=== PATIENT | female | born 1965 | race American Indian/Alaskan Native ===

== ENCOUNTER 2016-07-21 07:07 | Emergency (ER) | payer OTHER ==
[2016-07-21 07:39] VITALS: BP 135/91
[2016-07-21] MEDS ORDERED: PERCOCET 5/325 PO ONE (08:06)
--- NOTE | 2016-07-21 08:06 | Emergency Department Report ---
HPI - General Chief Complaint: Sore Throat Time Seen by Provider: 07/21/16 07:49 - HPI HPI: This is a 51 year-old female presents to the emergency department with a 2 day history of a generalized sharp headache, photophobia, bilateral ear pain, head congestion and sore throat. She has some pain with swallowing but has no difficulty doing so. She took a tramadol, which she has for recent foot surgery, about 1 AM this morning without much relief. She denies any slurred speech, chest pain, shortness of breath, fever, nausea or vomiting. She has a primary care physician, Dr. German Bryant, but has not seen him regarding her symptoms. No recent travel or sick contacts at home. ED Past Medical Hx - Past Medical History Hx Congestive Heart Failure: No Hx Diabetes: No Hx GERD: Yes Hx Kidney Stones: Yes Hx Asthma: Yes Hx COPD: No Hx HIV: No - Surgical History Hx Appendectomy: Yes Additional Surgical History: hysterectomy. right knee surgery. tonsillectomy. LEFT FOOT SURGERY - Social History Smoking Status: Never Smoker Substance Use Type: Prescribed - Medications Home Medications: Home Medications Medication Instructions Recorded Confirmed Last Taken Type ALBUTEROL Inhaler [ProAir HFA 2 puff IH QID PRN #1 inha 01/18/14 Unknown Rx Inhaler] ALBUTEROL NEB's [Proventil 0.083% 2.5 mg IH TID PRN #1 neb 01/18/14 Unknown Rx NEBS] Benzonatate [Tessalon Perle] 100 mg PO TID #20 capsule 01/18/14 Unknown Rx Loratadine [Claritin] 10 mg PO DAILY #20 tablet 01/18/14 Unknown Rx Mometasone Furoate [Nasonex] 2 spray NS QDAY #1 bottle 01/18/14 Unknown Rx predniSONE [Deltasone] 20 mg PO BID #8 tablet 02/21/14 Unknown Rx traMADol [Ultram 50 MG tab] 50 mg PO Q6HR PRN #25 tablet 02/21/14 Unknown Rx traMADol [Ultram 50 MG tab] 50 mg PO Q6HR PRN #20 tablet 01/16/15 Unknown Rx Azithromycin [Zithromax Z-KEO] 250 mg PO DAILY #6 tab 03/07/15 Unknown Rx Guaifenesin/Pseudoephedrne HCl 1 each PO Q12HR #14 tab.er.12h 03/07/15 Unknown Rx [Mucinex D ER 600-60 mg Tablet] oxyCODONE /ACETAMINOPHEN [Percocet 1 tab PO Q6HR PRN #5 tablet 07/21/16 Unknown Rx 5/325] ED Review of Systems ROS: Stated complaint: SORE THROAT/EARACHE/HEADACHE/CONGESTION Other details as noted in HPI Comment: All other systems reviewed and negative Constitutional: denies: chills, fever Eyes: denies: eye discharge, vision change ENT: ear pain, throat pain, congestion Respiratory: denies: shortness of breath, wheezing Cardiovascular: denies: chest pain, palpitations Gastrointestinal: denies: abdominal pain, nausea, diarrhea Genitourinary: denies: urgency, dysuria, discharge Musculoskeletal: denies: back pain, joint swelling, arthralgia Skin: denies: rash, lesions Neurological: headache. denies: weakness, numbness, paresthesias Physical Exam - Physical Exam Vital Signs: Vital Signs 07/21/16 07:33 Temperature 97.8 F Pulse Rate 82 Respiratory 18 Rate Blood Pressure 135/91 O2 Sat by Pulse 98 Oximetry Physical Exam: GENERAL: The patient is well-developed well-nourished. HEENT: Normocephalic. Atraumatic. Extraocular motions are intact. Patient has moist mucous membranes. Pupils equal reactive to light bilaterally. No nystagmus. Bilateral normal-appearing external ear canals and tympanic membranes. Oral pharynx is clear without tonsillar hypertrophy, erythema or exudates. NECK: Supple. No meningitic signs are noted. Full range of motion. CHEST/LUNGS: Clear to auscultation. There is no respiratory distress noted. HEART/CARDIOVASCULAR: Regular. There is no tachycardia. There is no gallop rub or murmur. ABDOMEN: Abdomen is soft, nontender. Patient has normal bowel sounds. There is no abdominal distention. SKIN: Skin is warm and dry. NEURO: The patient is awake, alert, and oriented. The patient is cooperative. The patient has no focal neurologic deficits. The patient has normal speech and gait. Cranial nerves II through XII grossly intact. MUSCULOSKELETAL: There is no tenderness or deformity. There is no limitation range of motion. There is no evidence of acute injury. Muscle strength 5 out of 5 upper and lower extremities bilaterally. ED Course Vital Signs 07/21/16 07:33 Temperature 97.8 F Pulse Rate 82 Respiratory 18 Rate Blood Pressure 135/91 O2 Sat by Pulse 98 Oximetry ED Medical Decision Making - Radiology Data Radiology results: report reviewed CT of the head does not show any acute process including no hemorrhage, mass, shift, diffuse edema or skull fracture. - Medical Decision Making This is a 51-year-old female who presents the emergency department with a 2 day history of a generalized headache, ear congestion, sore throat. She does not have any focal, motor or sensory deficits in her cranial nerves are intact. She does have some mild photophobia. Patient seen ambulatory in the emergency department and appears stable while doing so. Physical exam there is no sign of any otitis media, otitis externa or any pharyngitis. However a rapid strep test was done that was negative. Patient was given a pain pill upon reevaluation her headache is improved down to 5 out of 10 but since the patient does not have a history of headaches a CT of the head without contrast was done. There was no sign of any bleed, shift, mass, ischemic changes or any acute process. Patient was once again reevaluated and is feeling even more improved and asking for discharge home. She will be given a very small amount of pain medication to assist with her headache but she has been encouraged to return to the emergency department if the headache does not resolve, it worsens , there is development of any neurological deficits, or any acute distress. Otherwise she'll be encouraged to follow-up with her primary care doctor. - Differential Diagnosis tension headache, migraine headache, brain bleed, otitis media, strep phary Critical Care Time: No Critical care attestation.: If time is entered above; I have spent that time in minutes in the direct care of this critically ill patient, excluding procedure time. ED Disposition Clinical Impression: Sinus congestion Pharyngitis Qualifiers: Pharyngitis/tonsillitis etiology: unspecified etiology Qualified Code(s): J02.9 - Acute pharyngitis, unspecified Headache Qualifiers: Headache type: unspecified Headache chronicity pattern: unspecified pattern Intractability: not intractable Qualified Code(s): R51 - Headache Disposition: DISCHARGED TO HOME OR SELFCARE Is pt being admited?: No Condition: Stable Instructions: Acute Headache (ED), Earache (ED), Pharyngitis (ED) Additional Instructions: Please follow-up with Dr. Bryant in a few days. Return to the emergency department with any worsening of your symptoms, development of any neurological or sits, or any acute distress. You can use saline nasal spray for your sinus and ear congestion and this may also help with your sore throat. You can use Tylenol every 4 hours and Motrin every 6 hours, using weight-based dosing, as needed for discomfort. I have given you a small amount of pain medication to help finish off your headache but this medication also has some Tylenol and it so please make sure not to take too much Tylenol. You've been prescribed a medication that is sedating. Therefore this medication cannot be mixed with alcohol, or taken prior to driving, working, or being responsible for children. Prescriptions: oxyCODONE /ACETAMINOPHEN [Percocet 5/325] 1 tab PO Q6HR PRN #5 tablet PRN Reason: Pain Referrals: GERMAN BRYANT MD [Staff Physician] - 3-5 Days Time of Disposition: 10:07
--- NOTE | 2016-07-21 09:56 | Cat Scan Report ---
CT HEAD WITHOUT CONTRAST: HISTORY: Headache. Serial contiguous axial images were obtained through the cranium. Intravenous contrast material was not administered. The ventricles are normal in size and appearance. There is no mass effect or midline shift. No areas of abnormally increased or decreased attenuation are seen. No mass lesion is seen. The mastoid air cells and visualized portions of the sinuses are normal. IMPRESSION: Cranial CT scan within normal limits.
== END 2016-07-21 10:30 | disposition home or self-care (01) ==
LOC: ED 07:07
DX: J34.89 Other specified disorders of nose and nasal sinuses (principal); J02.9 Acute pharyngitis, unspecified; R51 Headache; J45.909 Unspecified asthma, uncomplicated; K21.9 Gastro-esophageal reflux disease without esophagitis; Z88.0 Allergy status to penicillin; Z88.6 Allergy status to analgesic agent; Z88.2 Allergy status to sulfonamides
CPT/HCPCS: 70450; 87116; 87430

== ENCOUNTER 2016-08-10 14:59 | Emergency (ER) | payer OTHER ==
[2016-08-10] MEDS ORDERED: TORADOL IM ONE (18:38)
[2016-08-10] MEDS ORDERED: FLEXERIL PO ONE (18:38)
[2016-08-10 19:02] VITALS: BP 158/98
--- NOTE | 2016-08-10 23:15 | Emergency Department Report ---
Entered by FRANNIE WASSERMAN, acting as scribe for BLAS QUEEN PA. ED Back Pain/Injury HPI - General Chief Complaint: Back Pain/Injury Stated Complaint: FALL/SEVERE BACK PAIN Source: patient Limitations: No Limitations - History of Present Illness Initial Comments: 51 y/o female with a PMHx of asthma, kidney stones, and GERD presents to the ED c/o left upper back pain that began last night. Patient states she tripped backwards, and subsequently fell on the wall. Rates back pain an 6/10 an severity, which she describes as throbbing, aching, and pressure in quality. Aggravated with deep breaths and bending, and alleviated with immobilization. Associated headache, but she denies head trauma/injury, numbness, tingling, chest pain, and SOB. Allergic to aspirin, codeine, penicillins, and sulfa. MD Complaint: back pain (left upper back) -: Last night Similar Symptoms Previously: No Place: home Radiation: none Severity: severe Severity scale (0 -10): 8 Quality: aching, other (throbbing and pressure) Consistency: constant Improves With: immobilization Worsens With: deep breaths/cough, other (bending) Context: fall (fell against the wall), other Associated Symptoms: denies other symptoms. denies: weakness, chest pain, numbness, difficulty walking, cough, incontinence, fever/chills, headaches, abdominal pain, nausea/vomiting, rash, shortness of breath - Related Data Previous Rx's Medication Instructions Recorded Last Taken Type ALBUTEROL Inhaler [ProAir HFA 2 puff IH QID PRN #1 inha 01/18/14 Unknown Rx Inhaler] ALBUTEROL NEB's [Proventil 0.083% 2.5 mg IH TID PRN #1 neb 01/18/14 Unknown Rx NEBS] Benzonatate [Tessalon Perle] 100 mg PO TID #20 capsule 01/18/14 Unknown Rx Loratadine [Claritin] 10 mg PO DAILY #20 tablet 01/18/14 Unknown Rx Mometasone Furoate [Nasonex] 2 spray NS QDAY #1 bottle 01/18/14 Unknown Rx predniSONE [Deltasone] 20 mg PO BID #8 tablet 02/21/14 Unknown Rx traMADol [Ultram 50 MG tab] 50 mg PO Q6HR PRN #25 tablet 02/21/14 Unknown Rx traMADol [Ultram 50 MG tab] 50 mg PO Q6HR PRN #20 tablet 01/16/15 Unknown Rx Azithromycin [Zithromax Z-KEO] 250 mg PO DAILY #6 tab 03/07/15 Unknown Rx Guaifenesin/Pseudoephedrne HCl 1 each PO Q12HR #14 tab.er.12h 03/07/15 Unknown Rx [Mucinex D ER 600-60 mg Tablet] oxyCODONE /ACETAMINOPHEN [Percocet 1 tab PO Q6HR PRN #5 tablet 07/21/16 Unknown Rx 5/325] Cyclobenzaprine [Flexeril] 10 mg PO QHS PRN #20 tablet 08/10/16 Unknown Rx Ibuprofen [Motrin] 800 mg PO Q8HR PRN #40 tablet 08/10/16 Unknown Rx Allergies Allergy/AdvReac Type Severity Reaction Status Date / Time aspirin Allergy Hives Verified 07/21/16 07:30 codeine Allergy Shortness Verified 07/21/16 07:30 of Breath Penicillins Allergy Hives Verified 07/21/16 07:30 Sulfa (Sulfonamide Allergy Hives Verified 07/21/16 07:30 Antibiotics) ED Review of Systems Comment: All other systems reviewed and negative Constitutional: denies: chills, fever Respiratory: denies: cough, shortness of breath, wheezing Cardiovascular: denies: chest pain, palpitations Endocrine: no symptoms reported Gastrointestinal: denies: abdominal pain, nausea, vomiting, diarrhea Genitourinary: denies: other (incontinence) Musculoskeletal: back pain (left upper back pain) Skin: denies: rash, lesions Neurological: denies: headache, weakness, paresthesias ED Past Medical Hx - Past Medical History Hx Congestive Heart Failure: No Hx Diabetes: No Hx GERD: Yes Hx Kidney Stones: Yes Hx Asthma: Yes Hx COPD: No Hx HIV: No - Surgical History Hx Appendectomy: Yes Additional Surgical History: hysterectomy. right knee surgery. tonsillectomy. LEFT FOOT SURGERY - Social History Smoking Status: Never Smoker Substance Use Type: Alcohol - Medications Home Medications: Home Medications Medication Instructions Recorded Confirmed Last Taken Type ALBUTEROL Inhaler [ProAir HFA 2 puff IH QID PRN #1 inha 01/18/14 Unknown Rx Inhaler] ALBUTEROL NEB's [Proventil 0.083% 2.5 mg IH TID PRN #1 neb 01/18/14 Unknown Rx NEBS] Benzonatate [Tessalon Perle] 100 mg PO TID #20 capsule 01/18/14 Unknown Rx Loratadine [Claritin] 10 mg PO DAILY #20 tablet 01/18/14 Unknown Rx Mometasone Furoate [Nasonex] 2 spray NS QDAY #1 bottle 01/18/14 Unknown Rx predniSONE [Deltasone] 20 mg PO BID #8 tablet 02/21/14 Unknown Rx traMADol [Ultram 50 MG tab] 50 mg PO Q6HR PRN #25 tablet 02/21/14 Unknown Rx traMADol [Ultram 50 MG tab] 50 mg PO Q6HR PRN #20 tablet 01/16/15 Unknown Rx Azithromycin [Zithromax Z-KEO] 250 mg PO DAILY #6 tab 03/07/15 Unknown Rx Guaifenesin/Pseudoephedrne HCl 1 each PO Q12HR #14 tab.er.12h 03/07/15 Unknown Rx [Mucinex D ER 600-60 mg Tablet] oxyCODONE /ACETAMINOPHEN [Percocet 1 tab PO Q6HR PRN #5 tablet 07/21/16 Unknown Rx 5/325] Cyclobenzaprine [Flexeril] 10 mg PO QHS PRN #20 tablet 08/10/16 Unknown Rx Ibuprofen [Motrin] 800 mg PO Q8HR PRN #40 tablet 08/10/16 Unknown Rx ED Physical Exam - General Limitations: No Limitations General appearance: alert, in no apparent distress - Head Head exam: Present: atraumatic, normocephalic - Eye Eye exam: Present: normal appearance, PERRL, EOMI Pupils: Present: normal accommodation - ENT ENT exam: Present: normal exam, mucous membranes moist - Neck Neck exam: Present: normal inspection, full ROM. Absent: tenderness, lymphadenopathy - Respiratory Respiratory exam: Present: normal lung sounds bilaterally. Absent: respiratory distress, wheezes, rales, rhonchi, stridor - Cardiovascular Cardiovascular Exam: Present: regular rate, normal rhythm, normal heart sounds. Absent: systolic murmur, diastolic murmur, rubs, gallop - GI/Abdominal GI/Abdominal exam: Present: soft, normal bowel sounds. Absent: distended - Extremities Exam Extremities exam: Present: normal inspection, full ROM - Back Exam Back exam: Present: full ROM (limited ROM due to back pain), tenderness (Left latissimus dorsi muscle tenderness). Absent: CVA tenderness (R), paraspinal tenderness, vertebral tenderness - Neurological Exam Neurological exam: Present: alert, oriented X3, normal gait - Psychiatric Psychiatric exam: Present: normal affect, normal mood - Skin Skin exam: Present: warm, dry, intact. Absent: rash ED Course Vital Signs 08/10/16 08/10/16 15:04 19:01 Temperature 98.2 F Pulse Rate 92 H 74 Respiratory 18 16 Rate Blood Pressure 134/86 Blood Pressure 158/98 [Left] O2 Sat by Pulse 100 100 Oximetry ED Medical Decision Making - Medical Decision Making 51-year-old female presents with left upper back myalgia ED course: Patient was given a Toradol and Flexeril for pain. Patient is not ill-appearing. Discussed heat therapy 3 times a day. Discussed home medications Flexeril and naproxen for pain. Discussed the follow-up for an PCP as referred. Discuss her symptoms return or worsen to return to the ED Patient states understanding and will follow instructions. Vital signs stable. Patient is in no acute distress. ED Disposition Clinical Impression: Myalgia, Trapezius muscle strain Disposition: DC- TO HOME OR SELFCARE Is pt being admited?: No Does the pt Need Aspirin: No Condition: Stable Instructions: Muscle Strain (ED), Trigger Point Pain (ED), Musculoskeletal Pain (ED), Heat Pack Application (ED) Prescriptions: Cyclobenzaprine [Flexeril] 10 mg PO QHS PRN #20 tablet PRN Reason: Muscle Spasm Ibuprofen [Motrin] 800 mg PO Q8HR PRN #40 tablet PRN Reason: Pain Referrals: PRIMARY CARE,MD [Primary Care Provider] - 3-5 Days [facility] [Outside] - 3-5 Days [facility] [Outside] - 3-5 Days Forms: Work/School Release Form(ED) Time of Disposition: 18:45 This documentation as recorded by the LISY mukherjee JASMINE,accurately reflects the service I personally performed and the decisions made by ,BLAS QUEEN PA.
== END 2016-08-10 19:03 | disposition home or self-care (01) ==
LOC: ED 14:59
DX: S46.912A Strain of unspecified muscle, fascia and tendon at shoulder and upper arm level, left arm, initial encounter (principal); K21.9 Gastro-esophageal reflux disease without esophagitis; J45.909 Unspecified asthma, uncomplicated; Z88.0 Allergy status to penicillin; Z88.1 Allergy status to other antibiotic agents; Z88.6 Allergy status to analgesic agent; W01.198A Fall on same level from slipping, tripping and stumbling with subsequent striking against other object, initial encounter; Y93.9 Activity, unspecified; Y99.9 Unspecified external cause status; Y92.009 Unspecified place in unspecified non-institutional (private) residence as the place of occurrence of the external cause
CPT/HCPCS: 96372; 99282; J1885

== ENCOUNTER 2017-07-15 18:09 | Emergency (ER) | payer SELFPAY ==
[2017-07-15 19:23] LABS: Basophils % (Auto) 0.4 % (0.0-1.8); Eosinophils # (Auto) 0.1 K/mm3 (0.0-0.4); Hematocrit 41.1 % (30.3-42.9); Hemoglobin 13.2 gm/dl (10.1-14.3); Lymphocytes # (Auto) 2.3 K/mm3 (1.2-5.4); Lymphocytes % (Auto) 25.2 % (13.4-35.0); Mean Corpuscular HGB Conc 32 % (30-34); Mean Corpuscular Hemoglobin 26 pg (28-32); Mean Corpuscular Volume 82 fl (79-97); Monocytes # (Auto) 0.7 K/mm3 (0.0-0.8); Monocytes % (Auto) 7.6 % (0.0-7.3); Platelet Count 286 K/mm3 (140-440); Red Blood Count 5.04 M/mm3 (3.65-5.03); Red Cell Distribution Width 12.4 % (13.2-15.2)
[2017-07-15 19:35] LABS: BUN/Creatinine Ratio 13; Blood Urea Nitrogen 9 mg/dL (7-17); Calcium 9.2 mg/dL (8.4-10.2); Hemolysis Index 7
--- NOTE | 2017-07-15 20:41 | XRay Report ---
FINAL REPORT EXAM: XR CHEST ROUTINE 2V HISTORY: Shortness of breath TECHNIQUE: PA and lateral views of the chest PRIORS: None. FINDINGS: Lines, tubes, and devices: N/A Lungs and pleura: Trachea is normal in position. Lungs are clear of infiltrate, pleural effusion, vascular congestion, or pneumothorax. Cardiomediastinal silhouette: Cardiac and mediastinal silhouettes are unremarkable. Other: Bony structures are intact. IMPRESSION: No acute cardiopulmonary process seen.
--- NOTE | 2017-07-16 01:18 | Emergency Department Report ---
ED General Adult HPI - General Chief complaint: Chest Pain Stated complaint: CHEST PAIN Time Seen by Provider: 07/16/17 01:07 Source: patient Mode of arrival: Ambulatory Limitations: No Limitations - History of Present Illness Initial comments: History of asthma cough and cold symptoms for several days no calf pain or swelling hurts in her chest when she coughs here for evaluation of nonproductive cough with some facial pains no headache no stiff neck, visual complaints of fever or exertional chest pain no history of coronary artery disease -: Gradual, days(s) Location: face, chest Severity scale (0 -10): 7 Quality: burning Consistency: intermittent Improves with: none Worsens with: none Associated Symptoms: denies other symptoms, chest pain, cough, fever/chills, headaches, malaise. denies: confusion, diaphoresis, loss of appetite, nausea/ vomiting, rash, seizure, shortness of breath, syncope, weakness - Related Data Previous Rx's Medication Instructions Recorded Last Taken Type ALBUTEROL NEB's [Proventil 0.083% 2.5 mg IH TID PRN #1 neb 01/18/14 Unknown Rx NEBS] Benzonatate [Tessalon Perle] 100 mg PO TID #20 capsule 01/18/14 Unknown Rx Loratadine [Claritin] 10 mg PO DAILY #20 tablet 01/18/14 Unknown Rx Mometasone Furoate [Nasonex] 2 spray NS QDAY #1 bottle 01/18/14 Unknown Rx traMADol [Ultram 50 MG tab] 50 mg PO Q6HR PRN #25 tablet 02/21/14 Unknown Rx traMADol [Ultram 50 MG tab] 50 mg PO Q6HR PRN #20 tablet 01/16/15 Unknown Rx Guaifenesin/Pseudoephedrne HCl 1 each PO Q12HR #14 tab.er.12h 03/07/15 Unknown Rx [Mucinex D ER 600-60 mg Tablet] oxyCODONE /ACETAMINOPHEN [Percocet 1 tab PO Q6HR PRN #5 tablet 07/21/16 Unknown Rx 5/325] Cyclobenzaprine [Flexeril] 10 mg PO QHS PRN #20 tablet 08/10/16 Unknown Rx Ibuprofen [Motrin] 800 mg PO Q8HR PRN #40 tablet 08/10/16 Unknown Rx ALBUTEROL Inhaler [ProAir HFA 2 puff IH QID PRN #1 inha 07/16/17 Unknown Rx Inhaler] Azithromycin [Zithromax Z-KEO] 250 mg PO DAILY #6 tab 07/16/17 Unknown Rx predniSONE [Deltasone] 20 mg PO BID #8 tablet 07/16/17 Unknown Rx Allergies Allergy/AdvReac Type Severity Reaction Status Date / Time aspirin Allergy Hives Verified 07/21/16 07:30 codeine Allergy Shortness Verified 07/21/16 07:30 of Breath Penicillins Allergy Hives Verified 07/21/16 07:30 Sulfa (Sulfonamide Allergy Hives Verified 07/21/16 07:30 Antibiotics) ED Review of Systems ROS: Stated complaint: CHEST PAIN Other details as noted in HPI Comment: All other systems reviewed and negative Constitutional: chills, fever, malaise. denies: diaphoresis Eyes: denies: eye discharge, vision change ENT: congestion, other (facial sinus pain) Respiratory: cough. denies: orthopnea, shortness of breath, SOB with exertion, SOB at rest, stridor, wheezing Cardiovascular: denies: chest pain, palpitations, dyspnea on exertion, orthopnea , edema, syncope, paroxysmal nocturnal dyspnea Gastrointestinal: denies: abdominal pain, nausea, vomiting, diarrhea, constipation, hematemesis, melena, hematochezia Neurological: denies: headache, weakness, numbness, paresthesias, confusion, abnormal gait, vertigo ED Past Medical Hx - Past Medical History Previous Medical History?: Yes Hx Congestive Heart Failure: No Hx Diabetes: No Hx GERD: Yes Hx Kidney Stones: Yes Hx Asthma: Yes Hx COPD: No Hx HIV: No Additional medical history: Sinusitis - Surgical History Past Surgical History?: Yes Hx Appendectomy: Yes Additional Surgical History: hysterectomy. right knee surgery. tonsillectomy. LEFT FOOT SURGERY - Social History Smoking Status: Never Smoker Substance Use Type: Alcohol, Prescribed - Medications Home Medications: Home Medications Medication Instructions Recorded Confirmed Last Taken Type ALBUTEROL NEB's [Proventil 0.083% 2.5 mg IH TID PRN #1 neb 01/18/14 Unknown Rx NEBS] Benzonatate [Tessalon Perle] 100 mg PO TID #20 capsule 01/18/14 Unknown Rx Loratadine [Claritin] 10 mg PO DAILY #20 tablet 01/18/14 Unknown Rx Mometasone Furoate [Nasonex] 2 spray NS QDAY #1 bottle 01/18/14 Unknown Rx traMADol [Ultram 50 MG tab] 50 mg PO Q6HR PRN #25 tablet 02/21/14 Unknown Rx traMADol [Ultram 50 MG tab] 50 mg PO Q6HR PRN #20 tablet 01/16/15 Unknown Rx Guaifenesin/Pseudoephedrne HCl 1 each PO Q12HR #14 tab.er.12h 03/07/15 Unknown Rx [Mucinex D ER 600-60 mg Tablet] oxyCODONE /ACETAMINOPHEN [Percocet 1 tab PO Q6HR PRN #5 tablet 07/21/16 Unknown Rx 5/325] Cyclobenzaprine [Flexeril] 10 mg PO QHS PRN #20 tablet 08/10/16 Unknown Rx Ibuprofen [Motrin] 800 mg PO Q8HR PRN #40 tablet 08/10/16 Unknown Rx ALBUTEROL Inhaler [ProAir HFA 2 puff IH QID PRN #1 inha 07/16/17 Unknown Rx Inhaler] Azithromycin [Zithromax Z-KEO] 250 mg PO DAILY #6 tab 07/16/17 Unknown Rx predniSONE [Deltasone] 20 mg PO BID #8 tablet 07/16/17 Unknown Rx ED Physical Exam - General Limitations: No Limitations General appearance: alert, in no apparent distress, anxious - Head Head exam: Present: atraumatic, normocephalic - Eye Eye exam: Present: PERRL, EOMI - ENT ENT exam: Present: normal exam, normal orophraynx - Neck Neck exam: Present: normal inspection. Absent: tenderness, meningismus - Respiratory Respiratory exam: Present: normal lung sounds bilaterally, chest wall tenderness. Absent: respiratory distress, wheezes, rales, rhonchi, stridor, accessory muscle use, decreased breath sounds, prolonged expiratory, other - Cardiovascular Cardiovascular Exam: Present: regular rate, normal rhythm, normal heart sounds, other (pulses equal bilaterally). Absent: systolic murmur, diastolic murmur, rubs, gallop - GI/Abdominal GI/Abdominal exam: Present: soft. Absent: distended, tenderness, guarding, rebound, rigid, mass, pulsatile mass - Extremities Exam Extremities exam: Present: normal inspection, normal capillary refill, other ( no Homans). Absent: tenderness, pedal edema, joint swelling, calf tenderness - Back Exam Back exam: Present: normal inspection. Absent: full ROM, tenderness, CVA tenderness (R), CVA tenderness (L), muscle spasm, paraspinal tenderness, vertebral tenderness - Neurological Exam Neurological exam: Present: alert, oriented X3, CN II-XII intact. Absent: motor sensory deficit - Psychiatric Psychiatric exam: Present: normal affect - Skin Skin exam: Present: warm ED Course Vital Signs 07/15/17 07/16/17 07/16/17 18:23 00:33 00:45 Temperature 100.9 F H Pulse Rate 129 H 115 H Respiratory 24 17 9 L Rate Blood Pressure 149/83 147/93 Blood Pressure [Right] O2 Sat by Pulse 97 99 Oximetry 07/16/17 07/16/17 00:57 01:00 Temperature 98.6 F Pulse Rate 111 H 114 H Respiratory 16 15 Rate Blood Pressure 144/90 Blood Pressure 136/85 [Right] O2 Sat by Pulse 97 97 Oximetry ED Medical Decision Making - Lab Data Result diagrams: 07/15/17 19:11 07/15/17 19:11 - EKG Data -: EKG Interpreted by Md EKG shows normal: sinus rhythm Rate: tachycardia - Radiology Data Radiology results: report reviewed - Medical Decision Making Chest pain is atypical EKG shows sinus tach likely related to the low grade fever troponin the remainder laboratory says are negative including urinalysis. Chest x-ray is negative. Symptoms are consistent with a bronchitis with likely sinusitis and atypical chest pain patient's toe for outpatient follow-up chest pain is reproducible and does appear to be related to cough Critical care attestation.: If time is entered above; I have spent that time in minutes in the direct care of this critically ill patient, excluding procedure time. ED Disposition Clinical Impression: Atypical chest pain, Sinusitis, Bronchitis Disposition: - TO HOME OR SELFCARE Is pt being admited?: No Condition: Stable Instructions: Chest Pain (ED), Acute Bronchitis (ED) Additional Instructions: Return immediately if nor alarming symptoms see the doctor listed or irregular DrGrant Prescriptions: ALBUTEROL Inhaler [ProAir HFA Inhaler] 2 puff IH QID PRN #1 inha PRN Reason: Shortness Of Breath Azithromycin [Zithromax Z-KEO] 250 mg PO DAILY #6 tab predniSONE [Deltasone] 20 mg PO BID #8 tablet Referrals: PRIMARY CARE, [Primary Care Provider] - 3-5 Days ROME WING MD [Staff Physician] - 3-5 Days Time of Disposition: 01:21
[2017-07-16 01:29] VITALS: BP 127/85
== END 2017-07-16 01:51 | disposition home or self-care (01) ==
LOC: ED 18:09
DX: J32.9 Chronic sinusitis, unspecified (principal); J40 Bronchitis, not specified as acute or chronic; R07.89 Other chest pain; K21.9 Gastro-esophageal reflux disease without esophagitis; J45.909 Unspecified asthma, uncomplicated
CPT/HCPCS: 36415; 71046; 80048; 84484; 85025; 93005; 93010

== ENCOUNTER 2017-08-14 09:05 | Outpatient (CLI) | payer OTHER ==
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
--- NOTE | 2017-08-14 11:27 | XRay Report ---
Left foot 2 views: History: Unable to walk due to leftward disuse. Findings: Generalized osteopenia. No fracture, periosteal reaction or lytic lesion. No soft tissue calcification. Arthritic changes at the interphalangeal joints second, third ,fourth and fifth toes. Large spur plantar aspect of the calcaneum and posterior dorsal aspect. Impression: No findings as detailed above. No acute changes.
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
--- NOTE | 2017-08-14 11:30 | XRay Report ---
Left hip 2 views: History: Unable to walk due to left flank issues. Findings: Mild arthritic changes at the hip joint. No fracture dislocation or soft tissue calcification. Impression: Mild arthritic changes left hip.
== END 2017-08-14 09:06 | disposition home or self-care (01) ==
LOC: XRAY 09:05
PROVIDERS: ATTEND Internal Medicine
DX: M47.896 Other spondylosis, lumbar region (principal); M16.12 Unilateral primary osteoarthritis, left hip; M77.32 Calcaneal spur, left foot; M19.072 Primary osteoarthritis, left ankle and foot; M85.88 Other specified disorders of bone density and structure, other site; M25.78 Osteophyte, vertebrae; J45.909 Unspecified asthma, uncomplicated; K21.9 Gastro-esophageal reflux disease without esophagitis; Z90.710 Acquired absence of both cervix and uterus; Z91.81 History of falling; Z90.49 Acquired absence of other specified parts of digestive tract; Z87.442 Personal history of urinary calculi
CPT/HCPCS: 72100

== ENCOUNTER 2018-12-18 08:14 | Emergency (ER) | payer OTHER ==
[2018-12-18 08:25] VITALS: BP 171/88
[2018-12-18] MEDS ORDERED: NORCO 7.5/325 PO ONE (08:45)
[2018-12-18 09:08] LABS: Basophils % (Auto) 0.5 % (0.0-1.8); Eosinophils # (Auto) 0.1 K/mm3 (0.0-0.4); Eosinophils % (Auto) 0.9 % (0.0-4.3); Hematocrit 39.9 % (30.3-42.9); Hemoglobin 13.1 gm/dl (10.1-14.3); Lymphocytes # (Auto) 2.6 K/mm3 (1.2-5.4); Lymphocytes % (Auto) 37.8 % (13.4-35.0); Mean Corpuscular HGB Conc 33 % (30-34); Mean Corpuscular Volume 83 fl (79-97); Monocytes # (Auto) 0.4 K/mm3 (0.0-0.8); Monocytes % (Auto) 5.8 % (0.0-7.3); Platelet Count 321 K/mm3 (140-440); Red Blood Count 4.82 M/mm3 (3.65-5.03); Red Cell Distribution Width 12.4 % (13.2-15.2)
[2018-12-18 09:29] LABS: BUN/Creatinine Ratio 20; Blood Urea Nitrogen 10 mg/dL (7-17); Calcium 9.3 mg/dL (8.4-10.2); Hemolysis Index 5
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
== END 2018-12-18 12:13 | disposition home or self-care (01) ==
LOC: ED 08:14
DX: S63.91XA Sprain of unspecified part of right wrist and hand, initial encounter (principal); S20.219A Contusion of unspecified front wall of thorax, initial encounter; R07.89 Other chest pain; R10.9 Unspecified abdominal pain; K21.9 Gastro-esophageal reflux disease without esophagitis; J45.909 Unspecified asthma, uncomplicated; Z90.710 Acquired absence of both cervix and uterus; Z90.89 Acquired absence of other organs; Z98.890 Other specified postprocedural states; Z79.899 Other long term (current) drug therapy; Z88.6 Allergy status to analgesic agent; Z88.5 Allergy status to narcotic agent; Z91.040 Latex allergy status; Z88.0 Allergy status to penicillin; Z88.8 Allergy status to other drugs, medicaments and biological substances; V87.7XXA Person injured in collision between other specified motor vehicles (traffic), initial encounter; Y93.89 Activity, other specified; Y92.410 Unspecified street and highway as the place of occurrence of the external cause; Y99.8 Other external cause status
CPT/HCPCS: 36415; 71260; 72040; 73130; 74177; 80048; 85025; 99284; Q9967

== ENCOUNTER 2018-12-24 17:11 | Emergency (ER) | payer OTHER ==
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
[2018-12-24 18:45] LABS: Alanine Aminotransferase 16 units/L (7-56); Albumin 4.2 g/dL (3.9-5); BUN/Creatinine Ratio 14; Blood Urea Nitrogen 10 mg/dL (7-17); Calcium 8.9 mg/dL (8.4-10.2); Hemolysis Index 8
[2018-12-24 18:52] LABS: Hematocrit 40.4 % (30.3-42.9); Mean Corpuscular HGB Conc 32 % (30-34); Mean Corpuscular Volume 84 fl (79-97); Platelet Count 333 K/mm3 (140-440); Red Blood Count 4.82 M/mm3 (3.65-5.03); Red Cell Distribution Width 12.5 % (13.2-15.2)
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
[2018-12-24] MEDS ORDERED: CYCLOBENZAPRINE 10 MG TAB PO ONE (19:55)
[2018-12-24] MEDS ORDERED: KETOROLAC 30 MG/1 ML INJ IM ONE (19:55)
[2018-12-24] MEDS ORDERED: ONDANSETRON 4 MG ODT TAB PO ONE (19:55)
[2018-12-24 20:07] VITALS: BP 147/92
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
[2018-12-24 20:48] LABS: Bacteria,Urine 1+ /HPF (Negative); Bilirubin,Urine NEG (Negative); Blood,Urine MOD (Negative); Color,Urine Yellow (Yellow); Hyaline Casts,Urine 1 /LPF; Mucus,Urine FEW /HPF; Protein,Urine <15 mg/dL mg/dL (Negative); Urobilinogen,Urine < 2.0 mg/dL (<2.0)
--- NOTE | 2018-12-24 21:02 | Cat Scan Report ---
CT ABDOMEN AND PELVIS WITHOUT CONTRAST INDICATION: abd pain. TECHNIQUE: Axial CT images were obtained through the abdomen and pelvis without IV contrast. All CT [facility] are performed using CT dose reduction for ALARA by means of automated exposure control. COMPARISON: CT abdomen pelvis 12/18/2018 FINDINGS: LOWER CHEST: No significant abnormality. LIVER: Remains enlarged with marked decreased attenuation characteristic for steatosis with focal fat ty sparing adjacent to gallbladder GALLBLADDER: No significant abnormality. BILE DUCTS: No significant abnormality. PANCREAS: No significant abnormality. SPLEEN: No significant abnormality. ADRENALS: No significant abnormality. RIGHT KIDNEY and URETER: No significant abnormality. LEFT KIDNEY and URETER: No significant abnormality. STOMACH and SMALL BOWEL: No significant abnormality. COLON: No significant abnormality. APPENDIX: No significant abnormality. PERITONEUM: No free fluid. No free air. No fluid collection. LYMPH NODES: No significant adenopathy. AORTA and ARTERIES: No significant abnormality. IVC and VEINS: No significant abnormality. URINARY BLADDER: No significant abnormality. REPRODUCTIVE ORGANS: No significant abnormality. ADDITIONAL FINDINGS: None. SKELETAL SYSTEM: No fracture of pelvis or lumbar spine. Moderate degenerative changes at L4-5, unchan ged IMPRESSION: 1. Hepatomegaly and marked hepatic steatosis, unchanged. 2. No acute inflammatory process, traumatic intra-abdominal or pelvic injury or interval change Signer Name: Yaya Raygoza MD Signed: 12/24/2018 8:58 PM Workstation Name: [id number]
== END 2018-12-24 21:35 | disposition home or self-care (01) ==
LOC: ED 17:11
DX: S16.1XXA Strain of muscle, fascia and tendon at neck level, initial encounter (principal); F07.81 Postconcussional syndrome; R51 Headache; J45.909 Unspecified asthma, uncomplicated; K21.9 Gastro-esophageal reflux disease without esophagitis; Z87.442 Personal history of urinary calculi; Z90.710 Acquired absence of both cervix and uterus; Z98.890 Other specified postprocedural states; Z90.89 Acquired absence of other organs; Z79.899 Other long term (current) drug therapy; Z91.040 Latex allergy status; Z91.048 Other nonmedicinal substance allergy status; Z88.5 Allergy status to narcotic agent; V49.59XA Passenger injured in collision with other motor vehicles in traffic accident, initial encounter; Y93.89 Activity, other specified; Y92.410 Unspecified street and highway as the place of occurrence of the external cause; Y99.8 Other external cause status
CPT/HCPCS: 36415; 70450; 72125; 74176; 80053; 81001; 83690; 85027; 96372; 99284; J1885; Q0162